=== PATIENT | female | born 1990 ===

== ENCOUNTER 2020-02-17 03:18 | Inpatient (IN) | payer OTHER ==
[2020-02-17] MEDS ORDERED: LIDOCAINE (2%) 20 MG/1 ML VIAL 20 ML MDV INFILTRATI ONE ×2 (04:06→06:58)
[2020-02-17] MEDS ORDERED: ONDANSETRON 4 MG/2 ML INJ IV PRN ×2 (04:06→07:09)
[2020-02-17] MEDS ORDERED: fentaNYL 100 MCG/2 ML INJ IV PRN (04:06)
[2020-02-17] MEDS ORDERED: TERBUTALINE 1 MG/1 ML INJ SUB-Q PRN (04:06)
[2020-02-17] MEDS ORDERED: ePHEDrine SULFATE 50 MG/1 ML INJ IV PRN (04:06)
[2020-02-17] MEDS ORDERED: LACTATED RINGERS 1,000 ML IV SCH (05:00)
[2020-02-17] MEDS ORDERED: valACYclovir 500 MG TAB PO SCH (05:00)
[2020-02-17 05:29] LABS: Hematocrit 28.6 % (30.3-42.9); Hemoglobin 9.2 gm/dl (10.1-14.3); Mean Corpuscular HGB Conc 32 % (30-34); Mean Corpuscular Volume 73 fl (79-97); Platelet Count 283 K/mm3 (140-440); Red Blood Count 3.91 M/mm3 (3.65-5.03); Red Cell Distribution Width 16.9 % (13.2-15.2)
[2020-02-17] MEDS ORDERED: miSOPROStol 200 MCG TAB ONE (06:56)
[2020-02-17] MEDS: OXYTOCIN 20 UNIT/1000ML DRIP 20 UNITS/1,000 ML BAG IV SCH ×2 (07:00→08:11)
[2020-02-17] MEDS ORDERED: miSOPROStol 200 MCG TAB PR ONE (07:08)
[2020-02-17] MEDS ORDERED: PROMETHAZINE 25 MG RECT SUPP PR PRN (07:09)
[2020-02-17] MEDS ORDERED: PROMETHAZINE 25 MG TAB PO PRN (07:09)
[2020-02-17] MEDS ORDERED: ACETAMINOPHEN 325 MG TAB PO PRN (07:09)
[2020-02-17] MEDS ORDERED: diphenhydrAMINE 25 MG CAP PO PRN (07:09)
[2020-02-17] MEDS ORDERED: MAGNESIUM HYDROXIDE (MOM) ORAL LIQD UDC PO PRN (07:09)
[2020-02-17] MEDS ORDERED: WITCH HAZEL/ GLYCERIN PAD TP PRN (07:09)
[2020-02-17] MEDS ORDERED: LANOLIN/ZINC/DIMETHICONE (LANSINOH) 7 GM TP PRN (07:09)
[2020-02-17] MEDS: IBUPROFEN 600 MG TAB PO SCH ×2 (07:27→14:42)
[2020-02-17 19:06] LABS: Hematocrit 27.4 % (30.3-42.9); Hemoglobin 8.7 gm/dl (10.1-14.3)
[2020-02-18] MEDS: IBUPROFEN 600 MG TAB PO SCH ×3 (10:45→18:36)
[2020-02-18] MEDS: FERROUS SULFATE 325 MG TAB PO SCH (22:42)
[2020-02-19] MEDS: IBUPROFEN 600 MG TAB PO SCH (05:35)
[2020-02-19 09:01] VITALS: BP 111/65
[2020-02-19] MEDS: FERROUS SULFATE 325 MG TAB PO SCH (10:18)
== END 2020-02-19 12:00 | disposition home or self-care (01) | DRG 806 ==
LOC: TRG 03:18 → APU 03:24 → TRG 04:06 → LD 04:07 → OB 08:47
PROVIDERS: ADMIT Obstetrics & Gynecology; ATTEND Obstetrics & Gynecology
PROC: 10E0XZZ Delivery of Products of Conception, External Approach (ICD-10-PCS; principal; 2020-02-17)
PROC: 0HQ9XZZ Repair Perineum Skin, External Approach (ICD-10-PCS; 2020-02-17)
DX: O77.0 Labor and delivery complicated by meconium in amniotic fluid (principal); O98.513 Other viral diseases complicating pregnancy, third trimester; Z37.0 Single live birth; B00.9 Herpesviral infection, unspecified; O99.02 Anemia complicating childbirth; O70.0 First degree perineal laceration during delivery; Z80.9 Family history of malignant neoplasm, unspecified; Z3A.39 39 weeks gestation of pregnancy
CPT/HCPCS: 36415; 85014; 85018; 85027; 86592; 86850; 86900; 86901; 88307; G0378; A6250; J2590; J7120